=== PATIENT | male | born 1945 | race Caucasian/White ===

== ENCOUNTER 2016-09-18 14:55 | Inpatient (IN) | payer OTHER, MEDICARE ==
[~2016-09-18] VITALS: Ht 172.7 cm; Wt 100.0 kg
[~2016-09-18 14:55] MED LIST: B12-1CHW CHEW; CARV6.25 PO; DICY1TAB26 PO; ECOT81TA2 PO; FERR220E3; LISI-363 PO; MECL25CH PO; METF500 PO; PRAV10 PO; TERA1CAP3 PO; VICT18IN SQ
[2016-09-18 15:02] VITALS: BP 179/92; PULSE 78; RESP 18; TEMP 98.3
[2016-09-18 15:07] VITALS: BP 174/92; PULSE 83; RESP 18; O2SAT 100
[2016-09-18] MEDS ORDERED: LIDOCAINE 1%/EPINEPHrine 1:100,000 SOLN 20 ML VIAL INFIL ONE (15:15)
[2016-09-18] MEDS ORDERED: MORPHINE SULFATE 4 MG/ML INJ IV PUSH ONE ×2 (15:15→18:00)
[2016-09-18] MEDS ORDERED: TETANUS/DIPHTHERIA TOXOID ADULT 0.5 ML VIAL IM ONE (15:15)
[2016-09-18] MEDS ORDERED: ONDANSETRON HCL 4 MG/2 ML VIAL IV PUSH ONE (15:15)
[2016-09-18 15:34] LABS: AUTOMATED NEUTROPHIL # 6.3 TH/MM3 (1.8-7.7); BASOPHIL % 0.4 % (0.0-2.0); EOSINOPHIL # 0.3 TH/MM3 (0-0.4); EOSINOPHIL % 2.9 % (0.0-4.0); HEMATOCRIT 40.4 % (39.0-51.0); HEMO FLAGS DIFF FINAL; LYMPH % 24.2 % (9.0-44.0); LYMPHOCYTE # 2.4 TH/MM3 (1.0-4.8); MEAN CELL VOLUME 94.6 FL (80.0-100.0); MEAN CORPUSCULAR HEMOGLOBIN 31.9 PG (27.0-34.0); MEAN CORPUSCULAR HGB CONC 33.7 % (32.0-36.0); MONO % 7.8 % (0.0-8.0); NEUT % 64.7 % (16.0-70.0); PLATELET COUNT 242 TH/MM3 (150-450); RED BLOOD COUNT 4.27 MIL/MM3 (4.50-5.90); RED CELL DISTRIBUTION WIDTH 13.9 % (11.6-17.2); WHITE BLOOD COUNT 9.7 TH/MM3 (4.0-11.0)
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
[2016-09-18 16:01] LABS: APTT (PATIENT) 26.3 SEC (24.3-30.1); BICARBONATE 19.5 MEQ/L (21.0-32.0); INTERNATIONAL NORMALIZED RATIO 0.9 RATIO; PROTHROMBIN TIME - PATIENT 10.4 SEC (9.8-11.6)
[2016-09-18 16:05] LABS: POTASSIUM 3.9 MEQ/L (3.5-5.1)
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
[2016-09-18] MEDS ORDERED: METFORMIN HOLD POST IV CONTRAST XX SCH (17:00)
[2016-09-18] MEDS ORDERED: IOHEXOL 350 MG/ML 10 ML VIAL (for RAD DIAG) IV ONE (17:04)
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
[2016-09-18] MEDS ORDERED: SODIUM CHLORIDE 0.9% FLUSH 5 ML FLUSH IVF PRN (18:15)
[2016-09-18] MEDS ORDERED: NALOXONE HCL 0.4 MG/ML AMP IV PRN (18:15)
[2016-09-18] MEDS ORDERED: MORPHINE SULFATE 4 MG/ML INJ IV PRN (18:15)
[2016-09-18] MEDS ORDERED: GLUCAGON 1 MG/ML VIAL OTHER PRN (18:30)
[2016-09-18] MEDS ORDERED: DEXTROSE 50% IN WATER 50 ML VIAL(D50) IV PUSH PRN (18:30)
[2016-09-18] MEDS ORDERED: METF500T PO (19:03)
[2016-09-18] MEDS ORDERED: CARV6.25 PO (19:03)
[2016-09-18] MEDS ORDERED: VICT18IN SQ (19:03)
[2016-09-18] MEDS ORDERED: TERA1CAP3 PO (19:03)
[2016-09-18] MEDS ORDERED: PRAV10TA PO (19:03)
[2016-09-18] MEDS ORDERED: ASPI81CH CHEW (19:03)
[2016-09-18] MEDS ORDERED: MECL12.574 PO (19:03)
[2016-09-18] MEDS ORDERED: LISI40TA PO (19:03)
[2016-09-18] MEDS ORDERED: FERR325T PO (19:03)
[2016-09-18 19:09] VITALS: BP 161/71; PULSE 70; RESP 18; O2SAT 99
[2016-09-18 19:12] VITALS: BP 139/70; PULSE 72; RESP 16; TEMP 97.8; O2SAT 100
[2016-09-18] MEDS ORDERED: LISI-515 PO (19:12)
[2016-09-18] MEDS: SODIUM CHLOR 0.9% 1000 ML INJ 1,000 ML IV SCH (19:18)
[2016-09-18] MEDS ORDERED: PANTOPRAZOLE SOD 40 MG DELAYED RELEASE TAB PO SCH (21:00)
[2016-09-18] MEDS: SODIUM CHLORIDE 0.9% FLUSH 5 ML FLUSH IVF SCH (21:00)
[2016-09-18] MEDS ORDERED: TERAZOSIN HCL 1 MG CAP PO SCH (21:00)
[2016-09-18] MEDS: DOCUSATE SODIUM 100 MG CAP PO SCH (21:00)
[2016-09-18] MEDS: INSULIN ASPART SUPPLEMENTAL SCALE SQ SCH (21:00)
[2016-09-18] MEDS: oxyCODONE/ACETAMINOPHEN 5 MG/325 MG TAB PO PRN (21:31)
[2016-09-18] MEDS: CARVEDILOL 6.25 MG TAB PO SCH (21:33)
[2016-09-18 22:00] VITALS: BP 138/76; PULSE 88; RESP 20; TEMP 97.4; O2SAT 97
[2016-09-19 05:46] LABS: AUTOMATED NEUTROPHIL # 3.7 TH/MM3 (1.8-7.7); BASOPHIL % 0.4 % (0.0-2.0); EOSINOPHIL # 0.3 TH/MM3 (0-0.4); EOSINOPHIL % 3.5 % (0.0-4.0); HEMATOCRIT 34.8 % (39.0-51.0); HEMO FLAGS DIFF FINAL; LYMPH % 35.5 % (9.0-44.0); LYMPHOCYTE # 2.6 TH/MM3 (1.0-4.8); MEAN CELL VOLUME 92.6 FL (80.0-100.0); MEAN CORPUSCULAR HEMOGLOBIN 32.6 PG (27.0-34.0); MEAN CORPUSCULAR HGB CONC 35.2 % (32.0-36.0); MONO % 10.4 % (0.0-8.0); NEUT % 50.2 % (16.0-70.0); PLATELET COUNT 204 TH/MM3 (150-450); RED BLOOD COUNT 3.76 MIL/MM3 (4.50-5.90); RED CELL DISTRIBUTION WIDTH 13.9 % (11.6-17.2); WHITE BLOOD COUNT 7.3 TH/MM3 (4.0-11.0)
[2016-09-19] MEDS: SODIUM CHLOR 0.9% 1000 ML INJ 1,000 ML IV SCH ×2 (05:52→12:45)
[2016-09-19] MEDS: oxyCODONE/ACETAMINOPHEN 5 MG/325 MG TAB PO PRN (05:53)
[2016-09-19] MEDS: INSULIN ASPART SUPPLEMENTAL SCALE SQ SCH ×2 (05:53→11:59)
[2016-09-19 06:06] LABS: BICARBONATE 24.5 MEQ/L (21.0-32.0); POTASSIUM 3.4 MEQ/L (3.5-5.1)
[2016-09-19 08:00] VITALS: BP 105/55; PULSE 63; RESP 18; TEMP 98.4; O2SAT 97
[2016-09-19] MEDS: CARVEDILOL 6.25 MG TAB PO SCH (08:58)
[2016-09-19] MEDS: DOCUSATE SODIUM 100 MG CAP PO SCH (08:58)
[2016-09-19] MEDS: SODIUM CHLORIDE 0.9% FLUSH 5 ML FLUSH IVF SCH (08:59)
[2016-09-19] MEDS ORDERED: POTASSIUM CHLORIDE 25 MEQ EFFERVESCENT TAB PO ONE (09:00)
[2016-09-19] MEDS ORDERED: POLYETHYLENE GLYCOL 17 GM PKG PO SCH (09:00)
[2016-09-19] MEDS ORDERED: LISINOPRIL 20 MG TAB PO SCH (09:00)
[2016-09-19 12:00] VITALS: BP 107/63; PULSE 65; RESP 18; TEMP 97.7; O2SAT 98
[2016-09-19] MEDS ORDERED: FERROUS SULFATE 325 MG (65 MG ELEMENTAL IRON) TAB PO SCH (12:30)
[2016-09-19] MEDS ORDERED: VICTOZA 18 MG/3 ML SQ SCH (13:15)
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
[2016-09-19] MEDS ORDERED: TERAZOSIN HCL 1 MG CAP PO SCH (21:00)
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
== END 2016-09-19 15:33 | disposition home or self-care (01) | DRG 700 ==
LOC: NEPC 14:55 → NEDA 18:09 → N07B 20:39
PROVIDERS: ADMIT Surgery; ATTEND Surgery
PROC: 0HQ1XZZ Repair Face Skin, External Approach (ICD-10-PCS; principal; 2016-09-18)
DX: S37.012A Minor contusion of left kidney, initial encounter (principal); I10 Essential (primary) hypertension; S01.112A Laceration without foreign body of left eyelid and periocular area, initial encounter; S80.212A Abrasion, left knee, initial encounter; S80.211A Abrasion, right knee, initial encounter; V23.4XXA Motorcycle driver injured in collision with car, pick-up truck or van in traffic accident, initial encounter; Y92.410 Unspecified street and highway as the place of occurrence of the external cause; E11.9 Type 2 diabetes mellitus without complications; Z79.84 Long term (current) use of oral hypoglycemic drugs; I25.10 Atherosclerotic heart disease of native coronary artery without angina pectoris; Z95.1 Presence of aortocoronary bypass graft; Z79.82 Long term (current) use of aspirin; R91.1 Solitary pulmonary nodule; N40.0 Benign prostatic hyperplasia without lower urinary tract symptoms; Z96.651 Presence of right artificial knee joint
CPT/HCPCS: 12011; 70450; 71260; 72125; 73030; 73552; 73564; 74177; 80048; 82948; 85025; 85610; 85730; 90471; 90714; 94150; 96374; 96375; 96376; J1815; J2270; J2405; J7030; Q9967

== ENCOUNTER 2016-10-31 21:09 | Emergency (ER) | payer OTHER ==
[~2016-10-31] VITALS: Ht 165.1 cm; Wt 81.0 kg
[~2016-10-31 21:09] MED LIST changes: +ASPI81CH CHEW; -B12-1CHW CHEW; -DICY1TAB26 PO; -ECOT81TA2 PO; -FERR220E3; +FERR325T PO; -LISI-363 PO; +LISI-515 PO; -MECL25CH PO; -METF500 PO; +METF500T PO; -PRAV10 PO
[2016-10-31 21:17] VITALS: BP 157/75; PULSE 115; RESP 24; TEMP 99.9; O2SAT 95
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
[2016-10-31] MEDS ORDERED: SODIUM CHLOR 0.9% 1000 ML INJ 700 ML IV ONE (21:58)
[2016-10-31] MEDS ORDERED: SODIUM CHLOR 0.9% 1000 ML INJ 1,000 ML IV ONE ×2 (21:58)
[2016-10-31] MEDS ORDERED: ONDANSETRON HCL 4 MG/2 ML VIAL IV PUSH ONE (22:00)
[2016-10-31] MEDS ORDERED: ACETAMINOPHEN 325 MG TAB PO ONE (22:00)
[2016-10-31 22:29] VITALS: O2SAT 98
[2016-10-31 22:35] VITALS: BP 142/78; PULSE 111; RESP 18; O2SAT 97
[2016-10-31 22:40] LABS: AUTOMATED NEUTROPHIL # 5.7 TH/MM3 (1.8-7.7); BASOPHIL % 0.3 % (0.0-2.0); EOSINOPHIL # 0.2 TH/MM3 (0-0.4); EOSINOPHIL % 2.7 % (0.0-4.0); HEMATOCRIT 36.3 % (39.0-51.0); HEMO FLAGS DIFF FINAL; LYMPH % 4.6 % (9.0-44.0); LYMPHOCYTE # 0.3 TH/MM3 (1.0-4.8); MEAN CELL VOLUME 92.5 FL (80.0-100.0); MEAN CORPUSCULAR HEMOGLOBIN 31.6 PG (27.0-34.0); MEAN CORPUSCULAR HGB CONC 34.1 % (32.0-36.0); MONO % 6.2 % (0.0-8.0); NEUT % 86.2 % (16.0-70.0); PLATELET COUNT 216 TH/MM3 (150-450); RED BLOOD COUNT 3.93 MIL/MM3 (4.50-5.90); RED CELL DISTRIBUTION WIDTH 13.7 % (11.6-17.2); WHITE BLOOD COUNT 6.6 TH/MM3 (4.0-11.0)
[2016-10-31 22:49] LABS: BLOOD, URINE NEG (NEG); COMMENT (UR) CATH-CULT NOT IND; CULTURE IF INDICATED CATH CULTURE NOT IND; GLUCOSE,URINE NEG (NEG); KETONE, URINE NEG (NEG); MUCUS URINE FEW /lpf (OCC); NITRITE,URINE NEG (NEG); PH, URINE 5.5 (5.0-8.5); URINE COLOR LIGHT-YELLOW (YELLW/STRAW)
--- NOTE | 2016-10-31 22:52 | RADRPT ---
EXAM DATE/TIME: 10/31/2016 22:28 [facility] COMPARISON: CHEST SINGLE AP, November 13, 2014, 8:28. INDICATIONS : Cough. MEDICAL HISTORY : None. SURGICAL HISTORY : CABG. ENCOUNTER: Initial ACUITY: 1 day PAIN SCORE: 0/10 LOCATION: Bilateral chest FINDINGS: A single view of the chest demonstrates the lungs to be symmetrically aerated without evidence of mas s, infiltrate or effusion. Previous median sternotomy. The cardiomediastinal contours are unremarkab le. Osseous structures are intact. CONCLUSION: 1. No acute cardiopulmonary disease. 2. Previous median sternotomy. Dane Garcia MD on October 31, 2016 at 22:50 Board Certified Radiologist. This report was verified electronically.
[2016-10-31 23:08] LABS: ALKALINE PHOSPHATASE 41 U/L (45-117); ALT (GPT) 21 U/L (12-78); ANION GAP 11 MEQ/L (5-15); AST (GOT) 21 U/L (15-37); BICARBONATE 22.6 MEQ/L (21.0-32.0); BLOOD UREA NITROGEN 9 MG/DL (7-18); CHLORIDE 103 MEQ/L (98-107); GLOMERULAR FILTRATION RATE 86 ML/MIN (>89); POTASSIUM 3.7 MEQ/L (3.5-5.1); SODIUM (NA) 137 MEQ/L (136-145); TOTAL BILIRUBIN ADULT 0.4 MG/DL (0.2-1.0)
--- NOTE | 2016-10-31 23:36 | RADRPT ---
EXAM DATE/TIME: 10/31/2016 23:26 [facility] COMPARISON: CT BRAIN W/O CONTRAST, September 18, 2016, 16:56. INDICATIONS : Cephalgia. RADIATION DOSE: 44.36 CTDIvol (mGy) MEDICAL HISTORY : Hypertension. Cardiovascular disease Myelopathy.Diabetes. SURGICAL HISTORY : CABG Total knee replacement, right.Cholecystectomy. ENCOUNTER: Initial ACUITY: 1 day PAIN SCALE: 5/10 LOCATION: cranial TECHNIQUE: Multiple contiguous axial images were obtained of the head. Using automated exposure control and adj ustment of the mA and/or kV according to patient size, radiation dose was kept as low as reasonably a chievable to obtain optimal diagnostic quality images. FINDINGS: CEREBRUM: The ventricles are normal for age. No evidence of midline shift, mass lesion, hemorrhage or acute in farction. No extra-axial fluid collections are seen. POSTERIOR FOSSA: The cerebellum and brainstem are intact. The 4th ventricle is midline. The cerebellopontine angle i s unremarkable. EXTRACRANIAL: The visualized portion of the orbits is intact. SKULL: The calvaria is intact. No evidence of skull fracture. CONCLUSION: Normal examination for a patient of this age. No significant change has occurred. Arun Calvillo MD on October 31, 2016 at 23:33 Board Certified Radiologist. This report was verified electronically.
[2016-10-31 23:54] VITALS: BP 126/71; PULSE 111; RESP 18; O2SAT 94
[2016-11-01 00:48] VITALS: PULSE 96
== END 2016-11-01 00:50 | disposition home or self-care (01) ==
LOC: NEPC 21:09
DX: B34.9 Viral infection, unspecified (principal); G44.309 Post-traumatic headache, unspecified, not intractable
CPT/HCPCS: 70450; 71010; 80053; 81001; 83605; 85025; 87040; 87804; 96360; 99284; J2405; J7030

== ENCOUNTER 2017-02-17 18:14 | Emergency (ER) | payer OTHER ==
[~2017-02-17] VITALS: Ht 172.7 cm; Wt 75.0 kg
[2017-02-17 18:20] VITALS: BP 205/86; PULSE 71; RESP 20; TEMP 98.5; O2SAT 100
[2017-02-17 18:36] VITALS: O2SAT 99
--- NOTE | 2017-02-17 18:38 | PD ---
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 Patient states that he was playing solitaire on the computer today when he had an episode of dizziness lasted approximately 5 minutes. He endorses accompanying palpitations and shortness of breath but states that this may be due to anxiety caused by the dizziness. He endorses similar but shorter episodes since his traumatic brain injury earlier this year. On presentation he complains of dull frontal headache. He denies fever, chills, cold symptoms, cough, shortness of breath, abdominal pain, nausea, vomiting, melena, hematochezia, dysuria, back pain, weakness of the extremities. Endorses complaints of this daily medications. He has a distant smoking history. He is followed by Dr. Mendieta and Dr. Norman. PFSH Past Medical History Hx Anticoagulant Therapy: Yes (ASA) Arthritis: No Blood Disorders: No Anxiety: No Depression: No Cancer: No Cardiac Catheterization: Yes Cardiovascular Problems: Yes Chemotherapy: No Chest Pain: No Congestive Heart Failure: No Cerebrovascular Accident: No Coronary Artery Disease: Yes Diabetes: Yes Patient Takes Glucophage: Yes Diminished Hearing: No Gastrointestinal Disorders: Yes (ULCERS) Genitourinary: No Hypertension: Yes Immune Disorder: No Implanted Vascular Access Dvce: Yes Musculoskeletal: Yes (RIGHT KNEE REPLACEMENT) Neurologic: No Psychiatric: No Reproductive: No Respiratory: No Past Surgical History Abdominal Surgery: No Body Medical Devices: RIGHT KNEE REPLACEMENT Cardiac Surgery: No Cholecystectomy: Yes Coronary Stent: Yes Ear Surgery: No Endocrine Surgery: No Eye Surgery: No Gynecologic Surgery: No Oral Surgery: No Thoracic Surgery: No Other Surgery: Yes (RIGHT KNEE REPLACEMENT) Social History Alcohol Use: No Tobacco Use: No Substance Use: No Allergies-Medications (Allergen,Severity, Reaction): Coded Allergies: No Known Allergies (Unverified , 10/31/16) Reported Meds & Prescriptions Reported Meds & Active Scripts Active Meclizine (Meclizine HCl) 25 Mg Tab 25 Mg PO BID PRN Reported Lisinopril 20 Mg Tab 20 Mg PO DAILY Victoza Inj (Liraglutide Inj) 18 Mg/3 Ml Pen 0.6 Mg SQ DAILY Terazosin (Terazosin HCl) 1 Mg Cap 1 Mg PO HS Coreg (Carvedilol) 6.25 Mg Tab 6.25 Mg PO BID Aspirin 81 Mg Chew 81 Mg CHEW DAILY Metformin (Metformin HCl) 500 Mg Tab 500 Mg PO DAILY With a meal Review of Systems Except as stated in HPI: all other systems reviewed are Neg Physical Exam Narrative GENERAL: Well-nourished, well-developed, nontoxic-appearing white male in no acute distress. SKIN: Focused skin assessment warm/dry. HEAD: Normocephalic. Atraumatic. EYES: No scleral icterus. No injection or drainage. PERRLA. EOMI. NECK: Supple, trachea midline. No JVD or lymphadenopathy. CARDIOVASCULAR: Regular rate and rhythm without murmurs, gallops, or rubs. 2+ DP and radial pulses. RESPIRATORY: Breath sounds are and equal bilaterally. No accessory muscle use. GASTROINTESTINAL: Abdomen soft, non-tender, nondistended. Active bowel sounds. MUSCULOSKELETAL: No cyanosis, or edema. NEUROLOGICAL: Awake and alert. Cranial nerves II through XII intact. Motor and sensory grossly within normal limits. 5/5 muscle strength in all muscle groups. Normal speech. BACK: Nontender without obvious deformity. No CVA tenderness. Data Data Last Documented VS Vital Signs Date Time Temp Pulse Resp B/P Pulse Ox O2 Delivery O2 Flow Rate FiO2 02/17/17 20:34 72 18 153/71 99 Room Air 02/17/17 18:20 98.5 Orders Electrocardiogram (02/17/17 18:34) Complete Blood Count With Diff (02/17/17 18:34) Comprehensive Metabolic Panel (02/17/17 18:34) Magnesium (Mg) (02/17/17 18:34) Ckmb (Isoenzyme) Profile (02/17/17 18:34) Troponin I (02/17/17 18:34) Act Partial Throm Time (Ptt) (02/17/17 18:34) Prothrombin Time / Inr (Pt) (02/17/17 18:34) Urinalysis - C+S If Indicated (02/17/17 18:34) Chest, Single Ap (02/17/17 18:34) Ct Brain W/O Iv Contrast(Rout) (8/12/17 18:34) Ecg Monitoring (02/17/17 18:34) Iv Access Insert/Monitor (02/17/17 18:34) Oximetry (02/17/17 18:34) Sodium Chloride 0.9% Flush (Ns Flush) (02/17/17 18:45) Orthostatic Vital Signs (02/17/17 18:34) Meclizine (Antivert) (02/17/17 19:30) Labs Laboratory Tests Test 02/17/17 02/17/17 18:35 19:15 White Blood Count 7.9 TH/MM3 Red Blood Count 4.12 MIL/MM3 Hemoglobin 13.1 GM/DL Hematocrit 38.9 % Mean Corpuscular Volume 94.5 FL Mean Corpuscular Hemoglobin 31.8 PG Mean Corpuscular Hemoglobin 33.7 % Concent Red Cell Distribution Width 13.5 % Platelet Count 277 TH/MM3 Mean Platelet Volume 7.3 FL Neutrophils (%) (Auto) 55.9 % Lymphocytes (%) (Auto) 30.6 % Monocytes (%) (Auto) 9.3 % Eosinophils (%) (Auto) 3.6 % Basophils (%) (Auto) 0.6 % Neutrophils # (Auto) 4.4 TH/MM3 Lymphocytes # (Auto) 2.4 TH/MM3 Monocytes # (Auto) 0.7 TH/MM3 Eosinophils # (Auto) 0.3 TH/MM3 Basophils # (Auto) 0.0 TH/MM3 CBC Comment DIFF FINAL Differential Comment Prothrombin Time 10.2 SEC Prothromb Time International 0.9 RATIO Ratio Activated Partial 27.3 SEC Thromboplast Time Sodium Level 139 MEQ/L Potassium Level 3.6 MEQ/L Chloride Level 105 MEQ/L Carbon Dioxide Level 23.7 MEQ/L Anion Gap 10 MEQ/L Blood Urea Nitrogen 11 MG/DL Creatinine 0.84 MG/DL Estimat Glomerular Filtration 90 ML/MIN Rate Random Glucose 126 MG/DL Calcium Level 8.4 MG/DL Magnesium Level 1.7 MG/DL Total Bilirubin 0.3 MG/DL Aspartate Amino Transf 12 U/L (AST/SGOT) Alanine Aminotransferase 16 U/L (ALT/SGPT) Alkaline Phosphatase 43 U/L Total Creatine Kinase 53 U/L Troponin I 0.02 NG/ML Total Protein 7.3 GM/DL Albumin 3.4 GM/DL Urine Color LIGHT-YELLOW Urine Turbidity CLEAR Urine pH 5.5 Urine Specific Sullivan 1.003 Urine Protein NEG mg/dL Urine Glucose (UA) NEG mg/dL Urine Ketones NEG mg/dL Urine Occult Blood NEG Urine Nitrite NEG Urine Bilirubin NEG Urine Urobilinogen LESS THAN 2.0 MG/DL Urine Leukocyte Esterase NEG Urine WBC LESS THAN 1 /hpf Urine Squamous Epithelial <1 /hpf Cells Microscopic Urinalysis Comment CULT NOT INDICATED MDM Medical Decision Making Medical Screen Exam Complete: Yes Emergency Medical Condition: Yes Interpretation(s) EKG rate 74, sinus rhythm. Q waves in leads 2, 3. No acute ST changes. Reviewed by Dr. Ferrell. 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 Patient states that he was playing solitaire on the computer today when he had an episode of dizziness lasted approximately 5 minutes. He endorses similar but shorter episodes since his traumatic brain injury earlier this year. On presentation he complains of dull frontal headache. He denies fever, chills, cold symptoms, cough, shortness of breath, abdominal pain, nausea, vomiting, melena, hematochezia, dysuria, back pain, weakness of the extremities. He is followed by Dr. Mendieta and Dr. Norman. Vitals reviewed. Orthostatic vital signs negative. Physical exam reveals a nontoxic appearing white male in no acute distress. No focal neuro deficits. No appreciable M/R/T. Chest CTA B. Abdomen soft and nontender. No lower extremity edema. No concerning abnormalities of the CBC, CMP or UA. Cardiac enzymes: Negative 1. CXR: No acute cardiopulmonary abnormality. CT brain: No acute abnormality per radiology read. He was administered 25 mg meclizine by mouth. He reports improvement of his symptoms on recheck. The symptoms have been ongoing since his accident in September. I don't think there is an acute emergency today. He states that he takes meclizine twice a day but is recently out of the medication. I refilled his prescription 25 mg meclizine 3 times a day 10 days. He is instructed to return to his normal medicine regimen, follow up with his primary care provider or neurologist. He indicated understanding of instructions and is agreeable to the care plan. He is stable and discharged home. Diagnosis Primary Impression: Dizziness Referrals: Neurologist Primary Care Physician Patient Instructions: Dizziness (ED), General Instructions Additional Instructions: Rest, hydrate. Return to normal, gentle activity as tolerated. Follow-up with your primary care provider and neurologist. Return to the ED for any urgent or emergent medical condition. Med/Other Pt SpecificInfo: Prescription(s) given Scripts Meclizine 25 Mg Tab25 Mg PO BID PRN (VERTIGO) #20 TAB Ref 0 Prov:Robb Leggett MD 02/17/17 Disposition: 01 DISCHARGE HOME Condition: Stable Lindy Domingo Feb 17, 2017 18:38
[2017-02-17 18:42] VITALS: BP_SYST 168; BP_SYST 169; BP_SYST 182; BP_DIAS 76; BP_DIAS 78; BP_DIAS 82
[2017-02-17] MEDS ORDERED: SODIUM CHLORIDE 0.9% FLUSH 10 ML FLUSH IVF PRN (18:45)
[2017-02-17 19:18] VITALS: BP 158/77; PULSE 76; RESP 18; O2SAT 99
--- NOTE | 2017-02-17 19:22 | RADRPT ---
EXAM DATE/TIME: 02/17/2017 18:53 [facility] COMPARISON: CT BRAIN W/O CONTRAST, October 31, 2016, 23:26. INDICATIONS : Dizziness. RADIATION DOSE: 50.48 CTDIvol (mGy) MEDICAL HISTORY : Cardiovascular disease. Hypertension. Diabetes mellitus type 2. SURGICAL HISTORY : Coronary artery stent. CABG ENCOUNTER: Initial ACUITY: 1 day PAIN SCALE: 0/10 LOCATION: cranial TECHNIQUE: Multiple contiguous axial images were obtained of the head. Using automated exposure control and adj ustment of the mA and/or kV according to patient size, radiation dose was kept as low as reasonably a chievable to obtain optimal diagnostic quality images. DICOM format image data is available electro nically for review and comparison. FINDINGS: CEREBRUM: The ventricles are normal for age. No evidence of midline shift, mass lesion, hemorrhage or acute in farction. No extra-axial fluid collections are seen. POSTERIOR FOSSA: The cerebellum and brainstem are intact. The 4th ventricle is midline. The cerebellopontine angle i s unremarkable. EXTRACRANIAL: The visualized portion of the orbits is intact. SKULL: The calvaria is intact. No evidence of skull fracture. CONCLUSION: No acute intracranial findings. Aneesh Taveras MD on February 17, 2017 at 19:18 Board Certified Radiologist. This report was verified electronically.
[2017-02-17] MEDS ORDERED: MECLIZINE HCL 25 MG TAB PO ONE (19:30)
--- NOTE | 2017-02-17 19:40 | RADRPT ---
EXAM DATE/TIME: 02/17/2017 19:10 [facility] COMPARISON: CHEST SINGLE AP, October 31, 2016, 22:28. INDICATIONS : Syncopal Episode, Short of Breath MEDICAL HISTORY : Cardiovascular disease. Hypertension. Diabetes mellitus type 2. SURGICAL HISTORY : Coronary artery stent. CABG ENCOUNTER: Initial ACUITY: 1 day PAIN SCORE: 0/10 LOCATION: Bilateral chest FINDINGS: Single AP view of the chest. Median sternotomy wires are present. The lungs are clear. Cardiomediasti nal silhouette within normal limits. No evidence of pleural effusion or pneumothorax. CONCLUSION: No acute cardiopulmonary disease identified. Aneesh Taveras MD on February 17, 2017 at 19:35 Board Certified Radiologist. This report was verified electronically.
[2017-02-17 19:50] LABS: AUTOMATED NEUTROPHIL # 4.4 TH/MM3 (1.8-7.7); BASOPHIL % 0.6 % (0.0-2.0); EOSINOPHIL # 0.3 TH/MM3 (0-0.4); EOSINOPHIL % 3.6 % (0.0-4.0); HEMATOCRIT 38.9 % (39.0-51.0); HEMO FLAGS DIFF FINAL; LYMPH % 30.6 % (9.0-44.0); LYMPHOCYTE # 2.4 TH/MM3 (1.0-4.8); MEAN CELL VOLUME 94.5 FL (80.0-100.0); MEAN CORPUSCULAR HEMOGLOBIN 31.8 PG (27.0-34.0); MEAN CORPUSCULAR HGB CONC 33.7 % (32.0-36.0); MONO % 9.3 % (0.0-8.0); NEUT % 55.9 % (16.0-70.0); PLATELET COUNT 277 TH/MM3 (150-450); RED BLOOD COUNT 4.12 MIL/MM3 (4.50-5.90); RED CELL DISTRIBUTION WIDTH 13.5 % (11.6-17.2); WHITE BLOOD COUNT 7.9 TH/MM3 (4.0-11.0)
[2017-02-17 19:51] LABS: BLOOD, URINE NEG (NEG); COMMENT (UR) CULT NOT INDICATED; CULTURE IF INDICATED CULT NOT INDICATED; GLUCOSE,URINE NEG (NEG); KETONE, URINE NEG (NEG); NITRITE,URINE NEG (NEG); PH, URINE 5.5 (5.0-8.5); SQUAMOUS EPITHELIAL CELL URINE <1 /hpf (0-5); URINE COLOR LIGHT-YELLOW (YELLW/STRAW)
[2017-02-17 19:54] LABS: APTT (PATIENT) 27.3 SEC (24.3-30.1); INTERNATIONAL NORMALIZED RATIO 0.9 RATIO; PROTHROMBIN TIME - PATIENT 10.2 SEC (9.8-11.6)
[2017-02-17 20:10] LABS: ANION GAP 10 MEQ/L (5-15); AST (GOT) 12 U/L (15-37); BICARBONATE 23.7 MEQ/L (21.0-32.0); BLOOD UREA NITROGEN 11 MG/DL (7-18); CHLORIDE 105 MEQ/L (98-107); GLOMERULAR FILTRATION RATE 90 ML/MIN (>89); MAGNESIUM 1.7 MG/DL (1.5-2.5); POTASSIUM 3.6 MEQ/L (3.5-5.1); SODIUM (NA) 139 MEQ/L (136-145)
[2017-02-17 20:11] LABS: ALT (GPT) 16 U/L (12-78)
[2017-02-17 20:14] LABS: ALKALINE PHOSPHATASE 43 U/L (45-117); TOTAL BILIRUBIN ADULT 0.3 MG/DL (0.2-1.0)
[2017-02-17 20:27] LABS: CREATINE KINASE 53 U/L (39-308)
[2017-02-17 20:34] VITALS: BP 153/71; PULSE 72; RESP 18; O2SAT 99
[2017-02-17] MEDS ORDERED: MECL-62 PO (20:39)
--- NOTE | 2017-02-18 12:24 | EKG ---
Date Performed: 02/17/2017 Time Performed: 18:25:44 PTAGE: 71 years EKG: Sinus rhythm MODERATE VOLTAGE CRITERIA FOR LVH, CONSIDER NORMAL VARIANT POSSIBLE LATERAL MYOCARDIAL INFARCTION IN FERIOR MYOCARDIAL INFARCTION ABNORMAL ECG PREVIOUS TRACING : 04/05/2015 22.49 Compared to prior tracing no significant change DOCTOR: Ryan Jones Interpretating Date/Time 02/18/2017 12:21:48
== END 2017-02-17 20:50 | disposition home or self-care (01) ==
LOC: NEPC 18:14
DX: R42 Dizziness and giddiness (principal); R51 Headache; I10 Essential (primary) hypertension; E11.9 Type 2 diabetes mellitus without complications; I25.10 Atherosclerotic heart disease of native coronary artery without angina pectoris; R94.31 Abnormal electrocardiogram [ECG] [EKG]; I25.2 Old myocardial infarction; Z87.820 Personal history of traumatic brain injury; Z79.82 Long term (current) use of aspirin
CPT/HCPCS: 70450; 71010; 80053; 81001; 82550; 83735; 84484; 85025; 85610; 85730; 93005; 99285